=== PATIENT | female | born 1985 | race Caucasian/White ===

== ENCOUNTER 2018-01-01 20:53 | Inpatient (IN) ==
[2018-01-01] MEDS ORDERED: ONDANSETRON 4 MG/2 ML VIAL IV PRN (21:24)
[2018-01-01] MEDS ORDERED: OXYTOCIN/LR 20 UNIT/1,000 ML BAG IV PRN ×2 (21:24→21:32)
[2018-01-01] MEDS ORDERED: BUTORPHANOL 2 MG/ML VIAL IV PRN (21:24)
[2018-01-01 22:12] LABS: Basophils % 0.1 % (0.0-0.8); Eosinophils % 0.4 % (0.00-10.9); Hematocrit 31.6 VOL% (35.7-47.0); Hemoglobin 10.2 GM/DL (12.0-16.0); Immature Granulocytes Absolute 0.07 #; Lymphocytes # 0.8 10*3/uL (1.4-4.0); Lymphocytes % 11.6 % (21.3-54.2); Mean Corpuscular HGB Conc 32.3 GM/DL (32-36); Mean Corpuscular Hemoglobin 28 PG (27-34); Mean Corpuscular Volume 87.1 FL (87-102); Mean Platelet Volume 11.3 FL (9.6-12.0); Monocytes # 0.6 10*3/uL (0.11-0.8); Monocytes % 8.4 % (1.7-12.7); Neutrophils # 5.7 10*3/uL (1.4-7.4); Neutrophils % 78.5 % (38.7-73.9); Platelet Count 188 T/CUMM (130-400); Red Blood Count 3.63 MC/CUMM (3.8-5.5); Red Cell Distribution Width 14.4 % (9.3-17.3); White Blood Count 7.2 T/CUMM (4-12)
[2018-01-01 22:33] LABS: Albumin 2.4 G/DL (3.4-5.0); Bilirubin,Total 0.6 MG/DL (0.2-1.0); Calcium 8.4 MG/DL (8.5-10.1); Total Protein 6.8 G/DL (6.4-8.3)
[2018-01-01 22:34] LABS: Osmolality,Calculated 274.5 MOS/KG (273-304); Potassium 3.4 MMOL/L (3.5-5.1)
[2018-01-01] MEDS: LACTATED RINGERS 1,000 ML IV SCH (23:28)
[2018-01-02] MEDS ORDERED: fentaNYL 2 MCG/ROPIV 0.2% EPID 150 ML EPIDURAL PRN (03:18)
[2018-01-02] MEDS ORDERED: ePHEDrine 50 MG/ML AMP IV PRN (03:18)
[2018-01-02] MEDS ORDERED: PROMETHAZINE 25 MG/1 ML VIAL IM PRN (03:18)
[2018-01-02] MEDS ORDERED: hydrOXYzine HCL 25 MG/1 ML VIAL IM PRN (03:18)
[2018-01-02] MEDS ORDERED: diphenhydrAMINE 50 MG/1 ML VIAL IV PRN ×2 (03:18)
[2018-01-02] MEDS ORDERED: FAMOTIDINE 20 MG/2 ML VIAL IV PRN (03:19)
[2018-01-02] MEDS ORDERED: CITRIC ACID/SODIUM CITRATE 30 ML UDCUP PO PRN (03:19)
[2018-01-02] MEDS: LACTATED RINGERS 1,000 ML IV SCH (08:00)
[2018-01-02] MEDS: CLINDAMYCIN INJ 900 MG in PREMIX 1 EACH IV SCH ×2 (08:01)
[2018-01-02] MEDS ORDERED: LACTATED RINGERS 1,000 ML IV ONE (09:39)
[2018-01-02] MEDS ORDERED: miSOPROStol 200 MCG TABLET ONE (10:44)
[2018-01-02] MEDS ORDERED: METHYLERGONOVINE 0.2 MG/1 ML AMP ONE (10:45)
[2018-01-02] MEDS ORDERED: ACETAMINOPHEN 325 MG TABLET PO PRN ×2 (11:53→11:55)
[2018-01-02] MEDS ORDERED: WITCH HAZEL PADS 100/JAR TOP PRN (11:53)
[2018-01-02] MEDS ORDERED: RHO(D) IMMUNE GLOBULIN 300 MCG SYRINGE IM ONE ×2 (11:53→12:00)
[2018-01-02] MEDS ORDERED: MEASLES/MUMPS/RUBELLA VACCINE 0.5 ML VIAL SUBCUT ONE (11:53)
[2018-01-02] MEDS ORDERED: HYDROCORTISONE 2.5% RECTAL CREAM 30 GM TUBE TOP PRN (11:53)
[2018-01-02] MEDS ORDERED: ONDANSETRON 4 MG/2 ML VIAL IV PRN (11:53)
[2018-01-02] MEDS ORDERED: DIPH/TET/ACEL PERT BOOSTER VACCINE 0.5 ML VIAL IM ONE (11:53)
[2018-01-02] MEDS ORDERED: oxyCODONE/ACETAMINOPHEN 5-325 MG TABLET PO PRN ×4 (11:53→11:55)
[2018-01-02] MEDS ORDERED: BENZOCAINE 20%/MENTHOL 0.5% SPRAY 56 GM CAN TOP PRN (11:53)
[2018-01-02] MEDS ORDERED: LANOLIN 50% CREAM 0.3 OZ TUBE TOP PRN (11:53)
[2018-01-02] MEDS ORDERED: BISACODYL 10 MG SUPP RECTAL PRN ×2 (11:53→11:55)
[2018-01-02] MEDS ORDERED: OXYTOCIN/LR 20 UNIT/1,000 ML BAG IV ONE ×2 (11:53→11:55)
[2018-01-02] MEDS ORDERED: IBUPROFEN 800 MG TABLET PO PRN (11:55)
[2018-01-02 12:54] LABS: Apearance,Urine Slightly Hazy (Clear); Bacteria,Urine Moderate /HPF (Few); Bilirubin,Urine Negative (Negative); Blood, Urine Negative (Negative); Glucose,Urine (UA) Negative (Negative); Ketones,Urine 5 mg/dL (Negative); Mucus,Urine Occasional /LPF (Occasional); Nitrite,Urine Negative (Negative); Protein,Urine Negative; RBC,Urine 2 /HPF (0-4); Squamous Epithelial Cell,Urine Occasional /HPF (0-10); Urine Color Yellow (Yellow); Urine Specific Gravity 1.006 (1.001-1.035); Urine Urobilinogen < 2.0 EU/DL (0.2-1.0); WBC,Urine 50 /HPF (0-6)
[2018-01-02] MEDS: DOCUSATE SODIUM 100 MG CAPSULE PO SCH (20:14)
[2018-01-02] MEDS: IBUPROFEN 800 MG TABLET PO PRN (21:35)
[2018-01-03 04:53] LABS: Basophils % 0.2 % (0.0-0.8); Eosinophils % 0.3 % (0.00-10.9); Hematocrit 31.8 VOL% (35.7-47.0); Hemoglobin 10.5 GM/DL (12.0-16.0); Immature Granulocytes % 0.5 %; Immature Granulocytes Absolute 0.05 #; Lymphocytes # 1.2 10*3/uL (1.4-4.0); Lymphocytes % 12.4 % (21.3-54.2); Mean Corpuscular Hemoglobin 28 PG (27-34); Mean Corpuscular Volume 83.7 FL (87-102); Mean Platelet Volume 11.2 FL (9.6-12.0); Monocytes # 0.8 10*3/uL (0.11-0.8); Monocytes % 8.6 % (1.7-12.7); Neutrophils # 7.5 10*3/uL (1.4-7.4); Platelet Count 169 T/CUMM (130-400); White Blood Count 9.6 T/CUMM (4-12)
[2018-01-03] MEDS: MULTIVITAMIN (PRENATAL) TABLET PO SCH (09:10)
[2018-01-03] MEDS: DOCUSATE SODIUM 100 MG CAPSULE PO SCH ×2 (09:10→21:41)
[2018-01-03] MEDS: IBUPROFEN 800 MG TABLET PO PRN (16:05)
[2018-01-04 07:58] VITALS: BP 141/88
[2018-01-04] MEDS: MULTIVITAMIN (PRENATAL) TABLET PO SCH (08:46)
[2018-01-04] MEDS: DOCUSATE SODIUM 100 MG CAPSULE PO SCH (08:46)
== END 2018-01-04 10:30 | disposition home or self-care (01) | DRG 560 ==
LOC: N.LDOUT 20:53 → N.LD 20:57 → N.OB 01-02 13:40
PROVIDERS: ADMIT Specialist; ATTEND Specialist